=== PATIENT | female | born 1990 | race Caucasian/White ===

== ENCOUNTER 2022-12-16 13:11 | Emergency (ER) | payer OTHER ==
[~2022-12-16] VITALS: Ht 177.8 cm; Wt 88.0 kg
[2022-12-16 13:12] VITALS: BP 122/77; TEMP 97.7; O2SAT 100
[2022-12-16] MEDS ORDERED: DICL25CA PO (13:41)
[2022-12-16 14:48] LABS: HEMATOCRIT 38.5 % (36.0-47.0); HEMOGLOBIN 12.9 g/dl (12.0-15.5); MEAN CORPUSCULAR HEMOGLOBIN 30.2 pg (27.0-33.0); MEAN CORPUSCULAR HGB CONC 33.5 g/dl (32.0-36.5); MEAN CORPUSCULAR VOLUME 90.2 fl (80.0-96.0); PLATELET COUNT, AUTOMATED 160 10^3/uL (150-450); RED BLOOD COUNT 4.27 10^6/uL (4.00-5.40); WHITE BLOOD COUNT 3.8 10^3/uL (4.0-10.0)
[2022-12-16 15:00] LABS: INR 1.04; PARTIAL THROMBOPLASTIN TIME 29.2 SECONDS (24.8-34.2); PROTHROMBIN TIME 13.8 SECONDS (12.5-14.5)
[2022-12-16] MEDS ORDERED: predniSONE 20 MG TAB PO ONE (15:05)
[2022-12-16 15:08] LABS: BLOOD UREA NITROGEN 13 MG/DL (9-23); CALCIUM LEVEL 8.7 MG/DL (8.5-10.1); CARBON DIOXIDE LEVEL 25 MMOL/L (20-31); CHLORIDE LEVEL 108 MMOL/L (98-107); CREATININE FOR GFR 0.63 MG/DL (0.55-1.30); GLOMERULAR FILTRATION RATE > 60.0 (>60); GLUCOSE, FASTING 93 MG/DL (60-100); POTASSIUM SERUM 4.2 MMOL/L (3.5-5.1); SODIUM LEVEL 140 MMOL/L (136-145)
[2022-12-16 15:13] LABS: RSV AMPLIFICATION NEGATIVE (NEGATIVE)
[2022-12-16 15:21] LABS: ATYPICAL LYMPH 8 % (0-5); BASOPHILS 1 % (0-1); LYMPHOCYTES 43 % (16-44); MONOCYTES 10 % (0-5); NEUTROPHILS 38 % (28-66); PLATELET ESTIMATE NORMAL (NORMAL)
[2022-12-16] MEDS ORDERED: ARTIDRO4 OD (17:06)
[2022-12-16] MEDS ORDERED: LACROIN OD (17:06)
[2022-12-16] MEDS ORDERED: AMOX500C PO (17:06)
[2022-12-16] MEDS ORDERED: PRED10TA2 PO (17:06)
[2022-12-16] MEDS ORDERED: AMOXICILLIN 500 MG CAP PO ONE (17:10)
[2022-12-16] MEDS ORDERED: CVS1MIS79 XX (17:19)
== END 2022-12-16 17:29 | disposition home or self-care (01) ==
LOC: M ED 13:11
DX: G51.0 Bell's palsy (principal); Z79.2 Long term (current) use of antibiotics; Z79.52 Long term (current) use of systemic steroids; Z79.899 Other long term (current) drug therapy
CPT/HCPCS: 70450; 71045; 80047; 80048; 84702; 85025; 85610; 85652; 85730; 86618; 87631; 93005; 93041; 94760; 99284; J7512